=== PATIENT | female | born 1950 | race Caucasian/White ===

== ENCOUNTER 2019-03-21 07:40 | Inpatient (IN) | payer OTHER ==
[~2019-03-21] VITALS: Ht 147.3 cm; Wt 49.9 kg
[~2019-03-21 07:40] MED LIST: CLOP75TA15 PO; DEXL60CA3 PO; HYDR-4354 PO; LISI40TA4 PO; LOVA40TA2 PO; METO-358 PO; ONDA4TAB11 PO
[2019-03-21] MEDS ORDERED: oxyCODONE HCL SR 10MG TAB.SR.12H PO ONE (08:42)
[2019-03-21] MEDS ORDERED: ACETAMINOPHEN 325 MG TABLET ONE (08:42)
[2019-03-21] MEDS ORDERED: ANESTHESIA TRAY IN PYXIS 1 EA TRAY MC ONE (08:57)
[2019-03-21] MEDS ORDERED: BACITRACIN 50000 UNITS/VIAL ONE (08:57)
[2019-03-21] MEDS ORDERED: FENTANYL PF 100MCG/2ML AMPUL ONE ×2 (09:17→12:33)
[2019-03-21] MEDS ORDERED: MIDAZOLAM HCL 2 MG/2ML VIAL ONE (09:17)
[2019-03-21] MEDS ORDERED: SCOPOLAMINE HBR 1 EA PATCH.TD72 TD ONE (09:17)
[2019-03-21] MEDS ORDERED: SEVOFLURANE 250 ML BOTTLE IH ONE (09:18)
[2019-03-21] MEDS ORDERED: BUPIVACAINE 0.75% DEXT-PF 2 ML AMPUL ONE (09:18)
[2019-03-21] MEDS ORDERED: TRANEXAMIC ACID 3,000 MG in SODIUM CHLORIDE IRRIG SOLUTION 70 ML IR ONE (10:30)
[2019-03-21] MEDS ORDERED: HYDROMORPHONE 1 MG/1 ML DISP.SYRIN ONE ×2 (12:10→12:19)
[2019-03-21] MEDS ORDERED: LABETALOL HCL IV 100MG VIAL ONE (12:34)
[2019-03-21] MEDS ORDERED: NICOTINE PATCH (7MG) 7 MG PATCH.TD24 TD PRN (13:00)
[2019-03-21] MEDS ORDERED: MAG HYDROX/AL HYDROX/SIMETH 30 ML UDC PO PRN (13:00)
[2019-03-21] MEDS ORDERED: diphenhydrAMINE HCL 25 MG CAPSULE PO PRN (13:00)
[2019-03-21] MEDS ORDERED: BISACODYL SUPP (10 MG) 10 MG/SUPP.RECT SUPP.RECT RC PRN ×2 (13:00→15:00)
[2019-03-21] MEDS ORDERED: MENTHOL/CETYLPYRD (CEPACOL) 1 LOZ LOZENGE PO PRN (13:00)
[2019-03-21 13:30] VITALS: BP 175/92
--- NOTE | 2019-03-21 13:30 | NUR ---
ms rn admitted a new patient from surgery,69 year old female,awake,alert,oriented x4,s/p left tka,awake,w/ dressing dry and intact, immobilizer on, denies pain at this time, will monitor patient's condition.
[2019-03-21 13:45] VITALS: BP 159/89
[2019-03-21 14:00] VITALS: BP 144/87
[2019-03-21 14:30] VITALS: BP 122/70
[2019-03-21] MEDS ORDERED: SENNOSIDES 8.6 MG TABLET PO PRN (15:00)
[2019-03-21] MEDS ORDERED: ACETAMINOPHEN 325 MG TABLET PO PRN (15:00)
[2019-03-21] MEDS ORDERED: DOCUSATE SODIUM 250 MG CAPSULE PO PRN (15:00)
--- NOTE | 2019-03-21 15:00 | NUR ---
ms rn on bed, no distress noted,all needs attended.
[2019-03-21] MEDS ORDERED: METOPROLOL SUCCINATE 50 MG TAB.SR.24H PO ONE (15:53)
[2019-03-21] MEDS: HYDROMORPHONE 1 MG/1 ML DISP.SYRIN SQ PRN ×2 (15:57→21:13)
[2019-03-21 16:00] VITALS: BP_SYST 110; BP_SYST 178; BP_DIAS 59; BP_DIAS 92
--- NOTE | 2019-03-21 17:00 | NUR ---
RN NEW IV SITE INSERTED AT RIGHT FOREARM G22, W/ GOOD VENOUS RETURN.
--- NOTE | 2019-03-21 17:00 | NUR ---
ms aprn done,due meds given,tolerated well.
[2019-03-21] MEDS: ANCEF 1 GM/50 ML D5W IV SCH ×4 (18:52→21:12)
[2019-03-21] MEDS: DOCUSATE SODIUM 100 MG CAPSULE PO SCH (18:52)
[2019-03-21] MEDS: IV LR 1000 ML 1,000 ML IV PRN (18:53)
--- NOTE | 2019-03-21 19:22 | NUR ---
MS RN ON BED, NO DISTRESS NOTED ALL NEEDS ATTENDED.
[2019-03-21 20:00] VITALS: BP 126/71
--- NOTE | 2019-03-21 20:00 | NUR ---
RN PM OPENING NOTE. PATIENT SEEN IN BED WHICH IS DOWN LOCKED, SR X2 BED ALARM IS ON. PATIENT ASKING FOR REMOVAL OF GUEVARA CATHETER. POC REVIEWED WITH PATIENT AND VERBALIZED UNDERSTANDING THAT GUEVARA WILL COME OUT TOMORROW MORNING. PAIN MANAGEMENT PLAN REVIEWED PATIENT IS HAVING DISCOMFORT OF HER LEFT KNEE, SHE IS POST OP TODAY DRESSING INTACT TO LEFT KNEE.PATIENT HAS SENSATION TO LEFT FOOT AND PEDAL PULSES PRESENT WITH GOOD CAP REFILL. PATIENT WEARING IMMOBILIZER. CPM AT THE BEDSIDE BUT PATIENT STATES THAT THEY DECIDED TO START THERAPY TOMORROW MORNING. . CALL LIGHT IN REACH. VERBALIZED UNDERSTANDING TO CALL FOR ASSISTANCE NEEDED.
[2019-03-21] MEDS: PANTOPRAZOLE 40 MG TABLET.DR PO SCH (21:13)
[2019-03-21] MEDS: oxyCODONE HCL SR 10MG TAB.SR.12H PO SCH (21:13)
[2019-03-21] MEDS: METOPROLOL SUCCINATE 50 MG TAB.SR.24H PO SCH (23:34)
[2019-03-22] MEDS: HYDROMORPHONE 1 MG/1 ML DISP.SYRIN SQ PRN ×3 (04:45→19:44)
--- NOTE | 2019-03-22 04:56 | NUR ---
GUEVARA/ PAIN MEDICATION PATIENT SEEN C/O PAIN 07/07 TO LEFT KNEE. DILAUDID ADMINISTERED PER ORDERS. GUEVARA CATHETER REMOVED PATIENT TOLERATED REMOVAL WELL. FC HAD 900 DURING NIGTH. IV INTACT NO S/S OF INFILTRATION. BED DOWN LOCKED PATEINT AGREEING TO HAVE SCD ON AGAIN SO REAPLLIED AND TURNED. ON. CALL LIGHT IN REACH BED DOWN AND LOCKED VERBALIZED UNDERSTANDING TO CALL FOR ASSSITANCE NEEDED.
[2019-03-22] MEDS: oxyCODONE IR immediate release 5 MG PO PRN ×2 (06:33→16:57)
[2019-03-22] MEDS: IV LR 1000 ML 1,000 ML IV PRN (06:34)
--- NOTE | 2019-03-22 07:30 | NUR ---
REPORT GIVEN TO RAMIREZ HACKETT. ENDORSED THAT FC REMOVED EARLIER THIS AM. PATIENT HAS NOT VOIDED. PATIENT SEEN IN BED IN NO APPARENT DISTRESS. BED DOWN LOCKED IN NO APPARENT DISTRESS. IV INFUSING WITH NO S/S OF INFILTRATION.
[2019-03-22 07:33] LABS: CREATININE 1.1 mg/dL (0.6-1.3); MAGNESIUM 1.4 mg/dL (1.8-2.4); PHOSPHORUS 4.1 mg/dL (2.5-4.9); POTASSIUM 4.3 mmol/L (3.5-5.1)
[2019-03-22 07:39] LABS: BASOPHILS % (AUTO) 0.4 % (0.0-2.0); HEMATOCRIT 29 % (33-45); LYMPHOCYTES # (AUTO) 1.7 /CMM (0.8-4.8); LYMPHOCYTES % (AUTO) 15.3 % (20.0-44.0); MEAN CORPUSCULAR HGB CONC 34 g/dl (31.0-36.0); MEAN CORPUSCULAR VOLUME 94 fL (82-100); MONOCYTES % (AUTO) 9.2 % (2.0-12.0); NEUTROPHILS # (AUTO) 8.2 /CMM (1.8-8.9); NEUTROPHILS % (AUTO) 75.1 % (43.0-81.0); PLATELET COUNT (AUTO) 292 /CMM (150-450); RED BLOOD CELL COUNT(AUTO) 3.11 MIL/uL (4.0-5.2)
[2019-03-22 08:00] VITALS: BP 199/76
--- NOTE | 2019-03-22 08:00 | NUR ---
MS RN RECEIVED ON BED, AWAKE,ALERT,ORIENTED X4,NOT IN ANY FORM OF DISTRESS, RESPIRATIONS EVEN AND UNLABORED,NO SOB NOTED, LUNGS ARE CLEAR,ABDOMEN SOFT,POSITIVE BOWEL SOUNDS,DENIES PAIN AT THIS TIME, WILL MONITOR PATIENT'S CONDITION.WILL MONITOR PATIENT.
[2019-03-22] MEDS ORDERED: ASPIRIN 325 MG TABLET PO SCH (09:00)
[2019-03-22] MEDS: DOCUSATE SODIUM 100 MG CAPSULE PO SCH ×2 (09:12→16:56)
[2019-03-22] MEDS: SENNOSIDES 8.6 MG TABLET PO SCH ×2 (09:12→16:56)
[2019-03-22] MEDS: oxyCODONE HCL SR 10MG TAB.SR.12H PO SCH ×2 (09:13→21:01)
[2019-03-22] MEDS: METOPROLOL SUCCINATE 50 MG TAB.SR.24H PO SCH ×2 (09:14→21:01)
[2019-03-22] MEDS: RIVAROXABAN 10 MG TABLET PO SCH (09:17)
--- NOTE | 2019-03-22 09:30 | NUR ---
ms reed breakfast served,due meds given,tolerated well.
--- NOTE | 2019-03-22 11:00 | NUR ---
ms rn was seen by pt,tolerated well.
--- NOTE | 2019-03-22 12:30 | NUR ---
ms derek was seen by renan beal/ orders made and carried out.
[2019-03-22] MEDS: Magnesium 1GM/D5W 100ML PREMIX 100 ML IV SCH ×4 (13:23→18:01)
[2019-03-22] MEDS ORDERED: METOPROLOL SUCCINATE 50 MG TAB.SR.24H PO ONE (14:49)
[2019-03-22 16:00] VITALS: BP 175/73
[2019-03-22] MEDS ORDERED: hydrALAZINE HCL IV 20 MG VIAL IV PRN (16:00)
[2019-03-22] MEDS: LISINOPRIL (20MG) 20 MG TABLET PO SCH (16:57)
--- NOTE | 2019-03-22 17:56 | NUR ---
ms rn on bed, no distress noted.
--- NOTE | 2019-03-22 19:20 | NUR ---
rn pm opening note. report recieved from claudia reed. patient seen in bed. has immobilizer on left knee. has sensation to left foot with good circulation. cap refill less then 3 seconds. pain management plan reviewed. poc reviewed questions concerns addressed. iv infusing to left wrist with no s/s of infiltration. last dose of magnesium hanging and infusing per orders. call light in reach bed down locked sr x2 bed alarm active.
[2019-03-22 20:00] VITALS: BP 185/71
--- NOTE | 2019-03-22 20:38 | NUR ---
POD#1 s/p left TKA. Met with patient, she is alert and pleasant. She lives with her daughter and patient's significant other in the first floor apartment in [place]. Prior to admission, she was ambulatory and independent with adl's.States has no DME or homehealth. Patient states she want to be discharge to a SNF in [facility]. States ok with [facility] if no SNF bed available in [facility]. Faxed dc planning needs to [facility] Manager Of Production Eloise Phillips [phone]/ f [phone] and UR [phone]. Addendum: 03/22/19 at 2335 by EZEQUIEL ART RN Amended: Links added.
[2019-03-22] MEDS: PANTOPRAZOLE 40 MG TABLET.DR PO SCH (21:00)
[2019-03-23] MEDS: oxyCODONE IR immediate release 5 MG PO PRN ×5 (00:55→14:01)
--- NOTE | 2019-03-23 05:28 | NUR ---
dr. munoz called and updated on pt condition no new orders recieved
[2019-03-23] MEDS: HYDROMORPHONE 1 MG/1 ML DISP.SYRIN SQ PRN ×2 (06:53→18:00)
--- NOTE | 2019-03-23 07:10 | NUR ---
rn closing note. bedside report given to codi reed. patient awake alert. bed down locked. poc reviewed with patient questions concerns addressed. patient left with call light in reach.
--- NOTE | 2019-03-23 07:37 | NUR ---
MS RN OPENING NOTES RECEIVED PT AWAKE. A/O 3-4. PT ON O2 AT 2LPM VIA NC, WITH NO ACUTE RESPIRATORY DISTRESS NOTED. PT DENIES PAIN. PT DENIES ANY QUESTIONS OR CONCERNS AT THIS MOMENT.PIV LAC G20 SL, FLUSHED WITH NS, INTACT AND PATENT. PT KEPT COMFORTABLE. PT'S BED KEPT IN LOWEST, LOCKED, POSITION WITH SRX2. CALL LIGHT WITHIN REACH. WILL CONTINUE PLAN OF CARE.
[2019-03-23 08:00] VITALS: BP 145/70
[2019-03-23] MEDS: ATORVASTATIN 10 MG TABLET PO SCH (08:27)
[2019-03-23] MEDS: DOCUSATE SODIUM 100 MG CAPSULE PO SCH ×2 (08:27→16:06)
[2019-03-23] MEDS: SENNOSIDES 8.6 MG TABLET PO SCH ×2 (08:28→16:06)
[2019-03-23] MEDS: CLOPIDOGREL BISULFATE 75 MG TABLET PO SCH (08:28)
[2019-03-23] MEDS: LISINOPRIL (20MG) 20 MG TABLET PO SCH (08:28)
[2019-03-23] MEDS: oxyCODONE HCL SR 10MG TAB.SR.12H PO SCH ×2 (08:28→21:22)
[2019-03-23] MEDS: METOPROLOL SUCCINATE 50 MG TAB.SR.24H PO SCH (08:29)
[2019-03-23] MEDS: RIVAROXABAN 10 MG TABLET PO SCH (08:37)
[2019-03-23 11:13] LABS: BASOPHILS % (AUTO) 0.3 % (0.0-2.0); EOSINOPHILS % (AUTO) 0.1 % (0.0-6.0); HEMATOCRIT 28 % (33-45); HEMOGLOBIN 9.5 g/dL (11.5-14.8); LYMPHOCYTES # (AUTO) 1.4 /CMM (0.8-4.8); LYMPHOCYTES % (AUTO) 10.7 % (20.0-44.0); MEAN CORPUSCULAR HGB CONC 34 g/dl (31.0-36.0); MEAN CORPUSCULAR VOLUME 94 fL (82-100); MONOCYTES # (AUTO) 0.9 /CMM (0.1-1.30); MONOCYTES % (AUTO) 6.5 % (2.0-12.0); NEUTROPHILS # (AUTO) 10.8 /CMM (1.8-8.9); NEUTROPHILS % (AUTO) 82.4 % (43.0-81.0); PLATELET COUNT (AUTO) 238 /CMM (150-450); WHITE BLOOD COUNT (AUTO) 13.2 K/uL (4.3-11.0)
[2019-03-23 11:20] LABS: CALCIUM, SERUM 8.6 mg/dL (8.5-10.1); CREATININE 0.8 mg/dL (0.6-1.3); MAGNESIUM 2.4 mg/dL (1.8-2.4); POTASSIUM 4.2 mmol/L (3.5-5.1)
--- NOTE | 2019-03-23 17:45 | NUR ---
RN NOTES SPOKE TO CM REGARDING PT'S PLAN FOR DISCHARGE. PT WANTED SNF AT [facility]. CM WASN'T ABLE TO CONFIRM TODAY. [facility] STATED THEY WILL TRY AGAIN ON Tuesday03/26/18, PT AGREED SNF AT [facility]. WILL ENDORSE TO INCOMING NURSE.
--- NOTE | 2019-03-23 18:05 | NUR ---
RN NOTES PT REFUSED TO HAVE FULL DOSE OF 1.5 DILAUDID ORDERED. PT FELT PAIN WHILE MEDICINE IS BEING ADMINISTERED. RN STOPPED GIVING MEDS PER PT REQUEST. 1MG/1ML WAS ONLY ADMINISTERED AT THIS TIME. WITNESSED BY GRISELDA RODRIGUES. WILL CONTINUE TO MONITOR.
--- NOTE | 2019-03-23 18:48 | NUR ---
MS RN CLOSING NOTES PT REMAINS AWAKE IN BED. A/O 3-4. PT ON O2 AT 2LPM VIA NC, WITH NO ACUTE RESPIRATORY DISTRESS NOTED. PT STATED IN PAIN STILL AT THIS MOMENT. PRN PAIN MEDICATION GIVEN. PIV LAC G20 SL, FLUSHED WITH NS, INTACT AND PATENT. ALL NEEDS AND CARE PROVIDED. PT KEPT COMFORTABLE. PT'S BED KEPT IN LOWEST, LOCKED, POSITION WITH SRX2. CALL LIGHT WITHIN REACH. WILL ENDORSE TO NIGHT NURSE FOR KENYATTA.
--- NOTE | 2019-03-23 19:30 | NUR ---
RN NOTES: RECEIVED AWAKE ON BED, SITTING COMFORTABLY,ON ROOM AIR, A/OX4, VERBALIZED NEEDS,STILL WITH ON AND OFF PAIN ON THE LLE S/P LEFT TKA, ON PAIN MANAGEMENT,LLE DRESSING INTACT, WITH KNEE IMMOBILIZER ON AT ALL TIMES,FANTA Jeong#20 PATENT SL,ORIENTED TO UNIT AND STAFF, BED LOW AND LOCKED, CALL LIGHT WITHIN EASY REACH.FALL,SAFETY AND ASPIRATION PRECAUTION OBSERVED.
[2019-03-23 20:00] VITALS: BP 158/96
[2019-03-23] MEDS: PANTOPRAZOLE 40 MG TABLET.DR PO SCH (21:22)
--- NOTE | 2019-03-23 22:26 | NUR ---
RN NOTES: BP [id number]/88, ABLE TO SLEEP AND REST AFTER OXYCONTIN GIVEN.NON PHARMACOLOGIC INTERVENTION EFFECTIVE.KEEP DIM LIT ROOM AND WARM BLANKET PROVIDED.CALL LIGHT KEEP WITHIN EASY REACH.
[2019-03-24] MEDS: oxyCODONE IR immediate release 5 MG PO PRN ×4 (00:32→16:10)
--- NOTE | 2019-03-24 00:33 | NUR ---
RN NOTES: ASSISTED TO BATHROOM, THEN RETURNING BACK TO BED COMPLAINED OF PAIN 7/10 ON THE LEFT KNEE, REQUEST FOR PAIN MEDICATION, OXY IR GIVEN PER PATIENT REQUEST.CALL LIGHT KEPT WITHIN EASY REACH.
[2019-03-24] MEDS ORDERED: MAGNESIUM HYDROXIDE 30 ML UDC PO ONE (06:34)
--- NOTE | 2019-03-24 06:43 | NUR ---
RN NOTES: AWAKE AT AROUND 0600, REPOSITIONED, AFTER THAT SHE COMPLAINED OF PAIN ON THE LEFT KNEE 06/06 , REQUEST AGAIN FOR HER PAIN MEDICATION , GIVEN CHOICES, AND SHE PREFERRED TO TAKE OXYCODONE IR 15 MG,GIVEN PER PATIENT REQUEST, NON PHARMACOLOGIC INTERVENTION RENDERED.FALL AND SAFETY PRECAUTION OBSERVED, NO SOB,ENDORSED FOR CONTINUITY OF CARE.
[2019-03-24] MEDS ORDERED: MAGNESIUM HYDROXIDE 30 ML UDC PO PRN (07:00)
[2019-03-24 08:00] VITALS: BP 166/96
[2019-03-24] MEDS: SENNOSIDES 8.6 MG TABLET PO SCH ×2 (08:54→16:33)
[2019-03-24] MEDS: DOCUSATE SODIUM 100 MG CAPSULE PO SCH ×2 (08:54→16:33)
[2019-03-24] MEDS: RIVAROXABAN 10 MG TABLET PO SCH (08:55)
[2019-03-24] MEDS: oxyCODONE HCL SR 10MG TAB.SR.12H PO SCH ×2 (08:56→20:42)
[2019-03-24] MEDS: METOPROLOL SUCCINATE 50 MG TAB.SR.24H PO SCH (08:57)
[2019-03-24] MEDS: ATORVASTATIN 10 MG TABLET PO SCH (08:58)
[2019-03-24] MEDS: LISINOPRIL (20MG) 20 MG TABLET PO SCH (08:59)
[2019-03-24] MEDS: CLOPIDOGREL BISULFATE 75 MG TABLET PO SCH (09:01)
[2019-03-24 16:00] VITALS: BP 148/66
[2019-03-24] MEDS: ONDANSETRON HCL/PF 4 MG/2 ML VIAL IV PRN (16:11)
--- NOTE | 2019-03-24 19:26 | NUR ---
MS RN A/O X 3, RESPIRATIONS EVEN AND UNLABORED, NO SOB NOTED, NO DISTRESS, SAFETY MEASURES IN PLACE. WILL CONTINUE TO MONITOR.
[2019-03-24 20:00] VITALS: BP 139/53
[2019-03-24] MEDS: ZOLPIDEM TARTRATE 5 MG TABLET PO PRN (20:41)
[2019-03-24] MEDS: PANTOPRAZOLE 40 MG TABLET.DR PO SCH (21:01)
[2019-03-24] MEDS: HYDROMORPHONE 1 MG/1 ML DISP.SYRIN SQ PRN (22:36)
[2019-03-25] MEDS: oxyCODONE IR immediate release 5 MG PO PRN ×3 (05:24→13:56)
--- NOTE | 2019-03-25 06:22 | NUR ---
MS RN ASLEEP AND EASILY AWAKEN, TOLERATING ROOM AIR 98%, AFEBRILE, RESPIRATION EVEN AND UNLABORED, STABLE AND NOT IN DISTRESS, L KNEE IMMOBILIZER AT ALL TIMES HAS SENSATION TO L FOOT WITH GOOD CIRCULATION. NEEDS ATTENDED AND ANTICIPATED, KEPT CLEAN AND DRY AND COMFORTABLE. NURSING CARE RENDERED, NO COMPLAIN OF PAIN AT THIS TIME. SAFETY MEASURES AT ALL TIMES. ENDORSE TO THE NEXT SHIFT.
[2019-03-25 07:21] LABS: BASOPHILS % (AUTO) 0.3 % (0.0-2.0); EOSINOPHILS % (AUTO) 0.7 % (0.0-6.0); HEMATOCRIT 27 % (33-45); HEMOGLOBIN 9.4 g/dL (11.5-14.8); LYMPHOCYTES # (AUTO) 1.6 /CMM (0.8-4.8); LYMPHOCYTES % (AUTO) 21.9 % (20.0-44.0); MEAN CORPUSCULAR HGB CONC 35 g/dl (31.0-36.0); MEAN CORPUSCULAR VOLUME 94 fL (82-100); MONOCYTES # (AUTO) 0.9 /CMM (0.1-1.30); MONOCYTES % (AUTO) 11.8 % (2.0-12.0); NEUTROPHILS # (AUTO) 4.9 /CMM (1.8-8.9); NEUTROPHILS % (AUTO) 65.3 % (43.0-81.0); PLATELET COUNT (AUTO) 252 /CMM (150-450); RED BLOOD CELL COUNT(AUTO) 2.91 MIL/uL (4.0-5.2); WHITE BLOOD COUNT (AUTO) 7.5 K/uL (4.3-11.0)
[2019-03-25 07:29] LABS: CALCIUM, SERUM 9.2 mg/dL (8.5-10.1); CREATININE 0.9 mg/dL (0.6-1.3); MAGNESIUM 2.4 mg/dL (1.8-2.4); PHOSPHORUS 3.7 mg/dL (2.5-4.9); POTASSIUM 4.2 mmol/L (3.5-5.1)
--- NOTE | 2019-03-25 07:30 | NUR ---
PT RECEIVED RESTING COMFORTABLY IN BED. NO S/S OR C/O PAIN OR DISTRESS NOTED. SIDE RAILS UP X2, CALL LIGHT LEFT WITHIN REACH. WILL CONTINUE PLAN OF CARE.
[2019-03-25 08:00] VITALS: BP 146/71
[2019-03-25] MEDS: SENNOSIDES 8.6 MG TABLET PO SCH ×2 (08:28→16:50)
[2019-03-25] MEDS: CLOPIDOGREL BISULFATE 75 MG TABLET PO SCH (08:28)
[2019-03-25] MEDS: DOCUSATE SODIUM 100 MG CAPSULE PO SCH ×2 (08:30→16:50)
[2019-03-25] MEDS: ATORVASTATIN 10 MG TABLET PO SCH (08:30)
[2019-03-25] MEDS: METOPROLOL SUCCINATE 50 MG TAB.SR.24H PO SCH (08:30)
[2019-03-25] MEDS: LISINOPRIL (20MG) 20 MG TABLET PO SCH (08:31)
[2019-03-25] MEDS: RIVAROXABAN 10 MG TABLET PO SCH (08:33)
[2019-03-25] MEDS ORDERED: oxyCODONE HCL SR 10MG TAB.SR.12H PO ONE (08:35)
[2019-03-25] MEDS: oxyCODONE HCL SR 10MG TAB.SR.12H PO SCH ×2 (08:36→20:14)
[2019-03-25 16:00] VITALS: BP 126/54
[2019-03-25] MEDS: HYDROMORPHONE 1 MG/1 ML DISP.SYRIN SQ PRN ×2 (16:50→22:46)
--- NOTE | 2019-03-25 18:04 | NUR ---
CHANGE OF SHIFT REPORT PT RESTING COMFORTABLY IN BED. NO S/S OR C/O PAIN OR DISTRESS NOTED. SIDE RAILS UPX2, CALL LIGHT LEFT WITHIN REACH. PT KEPT CLEAN, DRY, AND COMFORTABLE. NO SIGNIFICANT CHANGES SINCE PREVIOUS SHIFT. WILL GIVE REPORT TO LOIS HACKETT.
--- NOTE | 2019-03-25 19:15 | NUR ---
MS RN NOTES RECEIVED PT IN BED AWAKE AND ABLE TO MAKE NEEDS KNOWN. PT A/OX4. PT DENIES PAIN AT THIS TIME. RESPIRATIONS EVEN AND UNLABORED WITH NO S/S OF ACUTE DISTRESS OR SOB NOTED. PT WITH LAC G#20 PATENT AND INTACT AND SL. SAFETY MEASURES IN PLACE WITH BED IN LOW AND LOCKED POSITION WITH SIDE RAILS UP X2. CALL LIGHT WITHIN REACH. WILL CONTINUE TO MONITOR.
[2019-03-25 20:03] VITALS: BP 128/56
[2019-03-25] MEDS: ZOLPIDEM TARTRATE 5 MG TABLET PO PRN (21:24)
[2019-03-25] MEDS: PANTOPRAZOLE 40 MG TABLET.DR PO SCH (21:24)
--- NOTE | 2019-03-25 21:45 | NUR ---
MS RN NOTES AMBIEN GIVEN TO PT FOR DIFFICULTY SLEEPING. TOLERATED WELL.
--- NOTE | 2019-03-25 23:00 | NUR ---
MS RN NOTES DILAUDID GIVEN SUBQ FOR PAIN. TOLERATED WELL.
--- NOTE | 2019-03-26 06:51 | NUR ---
MS RN NOTES PT IN BED AWAKE AND ABLE TO MAKE NEEDS KNOWN. PT A/OX4. PT DENIES PAIN AT THIS TIME. RESPIRATIONS EVEN AND UNLABORED WITH NO S/S OF ACUTE DISTRESS OR SOB NOTED THROUGHOUT SHIFT. PT WITH LAC G#20 PATENT AND INTACT AND SL. PT KEPT CLEAN, DRY, AND COMFORTABLE. ASSISTED TO THE BATHROOM AND ON UNIT NEEDED. SAFETY MEASURES IN PLACE WITH BED IN LOW AND LOCKED POSITION WITH SIDE RAILS UP X2. CALL LIGHT WITHIN REACH. WILL CONTINUE TO MONITOR.
--- NOTE | 2019-03-26 06:52 | NUR ---
MS RN NOTES WILL ENDORSE TO ONCOMING NURSE FOR KENYATTA.
[2019-03-26 08:00] VITALS: BP_SYST 138; BP_SYST 139; BP_DIAS 65
--- NOTE | 2019-03-26 08:00 | NUR ---
RN NOTES RECEIVED PATIENT IN THE HALLWAY WALKING. PATIENT STABLE, WAS COMPLAINING OF PAIN LEFT LEG. ADMINISTERED MORPHINE SCHEDULED, AND OTHER MEDICATION. V/S STABLE. PATIENT STATE " I WOULD LIKE TO GO HOME THIS IS A POISONER ". ALSO GET CALL FROM PATIENT'S DAUGHTER NAME KAMINI Agee PER DAUGHTER PATIENT CALL HER TO TOLD CALL POLICE TO GET HER OUT OF HOSPITAL, AND WANTED TALK TO THE CASE MANAGEMENT ABOUT DISCHARGE PLANING. CASE MANAGEMENT NOTIFIED. CONTINUED MONITORING.
[2019-03-26] MEDS: DOCUSATE SODIUM 100 MG CAPSULE PO SCH ×2 (08:54→16:14)
[2019-03-26] MEDS: SENNOSIDES 8.6 MG TABLET PO SCH ×2 (08:54→16:14)
[2019-03-26] MEDS: METOPROLOL SUCCINATE 50 MG TAB.SR.24H PO SCH (08:55)
[2019-03-26] MEDS: LISINOPRIL (20MG) 20 MG TABLET PO SCH (08:55)
[2019-03-26] MEDS: oxyCODONE HCL SR 10MG TAB.SR.12H PO SCH ×2 (08:56→22:13)
[2019-03-26] MEDS: RIVAROXABAN 10 MG TABLET PO SCH (08:57)
[2019-03-26] MEDS: ATORVASTATIN 10 MG TABLET PO SCH (08:58)
[2019-03-26] MEDS: CLOPIDOGREL BISULFATE 75 MG TABLET PO SCH (08:58)
--- NOTE | 2019-03-26 10:05 | NUR ---
RN NOTES PATIENT WITH THE PT AT THIS TIME WALKING IN THE HALLWAY, PATIENT WEARING LEFT LEG LONG BRACE. MEDICATION WERE ADMINISTERED FOR PAIN EFFECTIVE. PATIENT STABLE. CONTINUED MONITORING.
--- NOTE | 2019-03-26 10:18 | NUR ---
RN NOTES PATIENT ON CPM MACHINE AT THIS TIME IN 4 HR . CONTINUED MONITORING.
[2019-03-26] MEDS: HYDROMORPHONE 1 MG/1 ML DISP.SYRIN SQ PRN ×2 (12:04→17:15)
--- NOTE | 2019-03-26 12:04 | NUR ---
RN NOTES ADMINISTERED DILAUDID 1.5 MG/ML SQ PER PATIENT REQUEST FOR PAIN 06/06 PER PATIENT REQUEST, V/S TAKEN BP-140/65, P-87, CONTINUED MONITORING.
[2019-03-26 16:00] VITALS: BP 125/80
[2019-03-26] MEDS: ONDANSETRON HCL/PF 4 MG/2 ML VIAL IV PRN (16:14)
--- NOTE | 2019-03-26 16:14 | NUR ---
RN NOTES ADMINISTERED ZOFRAN 4 MG /ML IV PUSH PER PATIENT REQUEST FOR NAUSEA.
--- NOTE | 2019-03-26 17:15 | NUR ---
RN NOTES ADMINISTERED DILAUDID 1.5 MG/ML SQ PER PATIENT REQUEST FOR LEFT KNEE PAIN 07/07. V/S TAKEN BP- 125/80, P-77, CONTINUED MONITORING.
--- NOTE | 2019-03-26 18:30 | NUR ---
RN NOTES PATIENT AWOL RISK TRYING TO GET OUT OF UNIT. HARD TO FOLLOW DIRECTION. PATIENT WILL DISCHARGE TOMORROW, BUT CRYING, ANXIOUS. PATIENT STATE " YOU ARE KEEPING ME HOSTAGE IN HERE , MY FIANCE, AND DAUGHTER WAITING FOR ME". CALLED AND LEFT MASSAGE DAUGHTER PHONE # [phone]. NOTIFIED CHARGE NURSE. ENDORSED ONCOMING NURSE TO FOLLOW UP.
--- NOTE | 2019-03-26 19:00 | NUR ---
RN MS OPENING NOTES RECEIVED PATIENT ANXIOUS AND CRYING, ATTEMPTED TO REDIRECT AND EXPLAIN PLAN OF CARE FOR DISCHARGE IN AM, HARD TO REDIRECTION PATIENT CLAIMING "KEEPING ME HOSTAGE" DESPITE EXPLANATION. CALLED AND SPOKE TO DAUGHTER HAYDEE MADE AWARE OF PATIENT BEHAVIOR. DAUGHTER AWARE OF BEHAVIOR, PATIENT IS REQUESTING TO HAVE A SMOKE BREAK, NOTIFIED DAUGHTER PER DAUGHTER OK TO HAVE SMOKE BREAK. MADE AWARE CONCERN FOR PATIENT TRYING TO LEAVE UNDERSTANDS. WILL TALK TO PATIENT REGARDING SMOKE BREAK. IV SITE TO LEFT AC#20 G INTACT AND PATENT, PATIENT DOES NOT WANT IVF AT THIS TIME, NOTED WALKING AROUND IN ROOM, DENIES ANY PAIN OR DISCOMFORT AT THIS TIME, ORIENTED TO STAFF AND CALL LIGHT AND KEPT WITHIN REACH, SAFETY PRECAUTIONS IN PLACE, ALL NEEDS ATTENDED AT THIS TIME WILL CONTINUE TO MONITOR. Addendum: 03/26/19 at 2158 by MARKO CAI RN CLARIFICATION OF IVF NO IVF ORDERED. WRONG ENTRY
[2019-03-26 20:00] VITALS: BP 98/63
--- NOTE | 2019-03-26 20:00 | NUR ---
RN MS NOTES PATIENT REQUESTING FOR SMOKE BREAK CONSENT SIGNED WILL GO WITH STAFF FOR SAFETY PRECAUTIONS. PATIENT STATES "IM NOT VIRAL ANYWHERE I JUST WANT A CIGARETTE." PATIENT LEFT IN STABLE CONDITION
--- NOTE | 2019-03-26 20:10 | NUR ---
RN MS NOTES PATIENT RETURNED IN STABLE CONDITION, IN ROOM.
[2019-03-26] MEDS: PANTOPRAZOLE 40 MG TABLET.DR PO SCH (22:13)
--- NOTE | 2019-03-26 23:10 | NUR ---
RN MS NOTES PATIENT COMPLAIN OF ITCHINESS TO BODY, REQUESTING FOR BENADRYL. PRN BENADRYL GIVEN AT THIS TIME, WILL CONTINUE TO MONITOR FOR EFFECTIVENESS.
--- NOTE | 2019-03-27 06:46 | NUR ---
RN MS CLOSING NOTES PATIENT IN BED SLEEPING, BUT EASILY AROUSABLE ALERT AND ORIENTED X3, RESPIRATIONS EVEN AND UNLABORED WITH EQUAL RISE AND FALL OF CHEST, DENIES ANY PAIN AT THIS TIME. IV SITE TO LEFT AC#20 G INTACT AND PATENT,NO REDNESS NO INFILTRATION,CALL LIGHT KEPT WITHIN REACH, FLUIDS AND TOILETING OFFERED, SAFETY PRECAUTIONS IN PLACE, ALL NEEDS ATTENDED AT THIS TIME WILL CONTINUE TO MONITOR AND ENDORSE TO NEXT SHIFT.SLEPT WELL THROUGH NIGHT.
[2019-03-27 08:00] VITALS: BP 167/78
[2019-03-27] MEDS: oxyCODONE HCL SR 10MG TAB.SR.12H PO SCH (08:00)
--- NOTE | 2019-03-27 08:00 | NUR ---
ms rn received on bed, awake,alert,oriented x4,not in any form of distress, respirations even and unlabored,no sob noted, lungs are clear,abdomen soft,positive bowel sounds,denies pain at this time,will monitor patient's condition.
[2019-03-27] MEDS: DOCUSATE SODIUM 100 MG CAPSULE PO SCH (08:48)
[2019-03-27] MEDS: ATORVASTATIN 10 MG TABLET PO SCH (08:48)
[2019-03-27] MEDS: CLOPIDOGREL BISULFATE 75 MG TABLET PO SCH (08:49)
[2019-03-27] MEDS: METOPROLOL SUCCINATE 50 MG TAB.SR.24H PO SCH (08:49)
[2019-03-27] MEDS: SENNOSIDES 8.6 MG TABLET PO SCH (08:49)
[2019-03-27] MEDS: LISINOPRIL (20MG) 20 MG TABLET PO SCH (08:49)
[2019-03-27] MEDS: RIVAROXABAN 10 MG TABLET PO SCH ×2 (08:50→09:00)
--- NOTE | 2019-03-27 09:00 | NUR ---
rn npo for procedure,all needs attended.
--- NOTE | 2019-03-27 09:30 | NUR ---
ms rn was seen by dr. mary beal/ orders made and carried out.
[2019-03-27] MEDS: HYDROMORPHONE 1 MG/1 ML DISP.SYRIN SQ PRN ×2 (09:56→15:24)
[2019-03-27] MEDS ORDERED: SENN-168 PO (11:41)
[2019-03-27] MEDS ORDERED: NICO-760 TD (11:41)
[2019-03-27] MEDS ORDERED: RIVA10TA PO (11:41)
[2019-03-27] MEDS ORDERED: DOCU-270 PO (11:41)
[2019-03-27] MEDS: oxyCODONE IR immediate release 5 MG PO PRN (12:44)
--- NOTE | 2019-03-27 14:00 | NUR ---
ms derek wiseman patient is going home w/ prescription as ordered.
[2019-03-27 16:00] VITALS: BP 141/56
--- NOTE | 2019-03-27 16:11 | NUR ---
ms rn went home via ambulance, refused to take picture of incision site,all needs attended.
--- NOTE | 2019-03-29 07:30 | NUR ---
MS RN NOTES ON 03/25/19 BRIA SUN RN GAVE PAIN MEDICATION WITHOUT CHARGING PATIENT. TRANSACTION CORRECTED PER HOSPITAL [facility]OT[facility].
== END 2019-03-27 16:15 | disposition home or self-care (01) | DRG 470 ==
LOC: DS 07:40 → MED 14:09
PROVIDERS: ADMIT Hospitalist; ATTEND Nurse Practitioner Acute Care
PROC: 0SRD0J9 Replacement of Left Knee Joint with Synthetic Substitute, Cemented, Open Approach (ICD-10-PCS; principal; 2019-03-21)
DX: M17.12 Unilateral primary osteoarthritis, left knee (principal); E87.1 Hypo-osmolality and hyponatremia; I25.10 Atherosclerotic heart disease of native coronary artery without angina pectoris; I10 Essential (primary) hypertension; E78.5 Hyperlipidemia, unspecified; Z95.1 Presence of aortocoronary bypass graft; Z96.651 Presence of right artificial knee joint; G89.29 Other chronic pain; E83.42 Hypomagnesemia
CPT/HCPCS: 36415; 80048-TC; 83735-TC; 84100-TC; 85025-TC; 86850-TC; 86921-TC; 87081-TC; 88305-TC; 88311-TC; 97110-TC; 97116-TC; 97530-TC; 97760-TC; A4217; A6402; C1713; G0378; J0360; J0690; J1100; J1170; J2250; J2405; J2704; J3010; J3475; J3490; J7060; J7120; L1830; Q0163